=== PATIENT | male | born 1975 | race Caucasian/White ===

== ENCOUNTER 2020-09-13 17:06 | Emergency (ER) | payer MEDICARE, MEDICAID ==
[~2020-09-13] VITALS: Ht 165.1 cm; Wt 91.0 kg
[2020-09-13] MEDS ORDERED: INSLIS SUBCUT (17:17)
[2020-09-13] MEDS ORDERED: DEXTROSE 50% WATER 50ML SYRINGE IV ONE (17:30)
[2020-09-13 18:00] VITALS: BP 162/65
[2020-09-13 18:12] LABS: BASOPHILS % 2.8 % (0.0-2.0); EOSINOPHILS % 4.6 % (0.0-5.0); HEMATOCRIT. 31.8 % (42.0-52.0); HEMOGLOBIN. 10.6 g/dL (14.0-18.0); LYMPHOCYTES % 11.6 % (20.0-50.0); MEAN CORPUSCULAR HEMOGLOBIN 33.3 pg (28.0-32.0); MEAN CORPUSCULAR VOLUME 100.2 fL (80.0-94.0); MEAN PLATELET VOLUME 8.3 fl (7.4-10.4); MONOCYTES % 8.2 % (2.0-8.0); NEUTROPHILS % 72.8 % (40.0-76.0); PLATELET 312 x1000/uL (130-400); RED BLOOD CELL COUNT 3.17 mill/uL (4.7-6.1); RED CELL DISTRIBUTION WIDTH 15.9 % (11.6-14.6)
[2020-09-13 18:21] LABS: CHLORIDE 93 mEq/L (98-107)
== END 2020-09-13 20:40 | disposition home or self-care (01) ==
LOC: EDBD 17:54 → ER 17:54
DX: E11.649 Type 2 diabetes mellitus with hypoglycemia without coma (principal); I12.0 Hypertensive chronic kidney disease with stage 5 chronic kidney disease or end stage renal disease; E11.22 Type 2 diabetes mellitus with diabetic chronic kidney disease; N18.6 End stage renal disease; Z99.2 Dependence on renal dialysis
CPT/HCPCS: 36415; 71045; 80053; 82962; 85025; 93005; 99285

== ENCOUNTER 2021-01-18 09:06 | Emergency (ER) | payer MEDICARE, MEDICAID ==
[~2021-01-18] VITALS: Ht 167.6 cm; Wt 50.0 kg
[~2021-01-18 09:06] MED LIST: INSLIS SUBCUT
[2021-01-18] MEDS ORDERED: TETANUS, DIPHTHERIA, PERTUSSIS VAC/PF 0.5ML (>10YR OLD) IM ONE (09:45)
[2021-01-18] MEDS ORDERED: ACETAMINOPHEN 325MG TABLET PO ONE (09:45)
[2021-01-18] MEDS ORDERED: ACET-2708 MT (10:44)
[2021-01-18 11:36] VITALS: BP 122/78
== END 2021-01-18 11:39 | disposition home or self-care (01) ==
LOC: ER 09:06
DX: S42.001A Fracture of unspecified part of right clavicle, initial encounter for closed fracture (principal); S09.8XXA Other specified injuries of head, initial encounter; E11.22 Type 2 diabetes mellitus with diabetic chronic kidney disease; I12.0 Hypertensive chronic kidney disease with stage 5 chronic kidney disease or end stage renal disease; N18.6 End stage renal disease; Z99.2 Dependence on renal dialysis; W06.XXXA Fall from bed, initial encounter; Y93.89 Activity, other specified; Y92.013 Bedroom of single-family (private) house as the place of occurrence of the external cause
CPT/HCPCS: 71045; 73030; 90471; 90715; 99284; A4565

== ENCOUNTER 2022-04-06 14:56 | Inpatient (IN) | payer MEDICARE, MEDICAID ==
[~2022-04-06] VITALS: Ht 172.7 cm; Wt 63.2 kg
[~2022-04-06 14:56] MED LIST changes: +ACET-2708 MT
[2022-04-06 16:41] LABS: BASOPHILS % 0.9 % (0.0-2.0); HEMATOCRIT. 26.1 % (42.0-52.0); HEMOGLOBIN. 8.7 g/dL (14.0-18.0); LYMPHOCYTES % 7.1 % (20.0-50.0); MEAN CORPUSCULAR HEMOGLOBIN 32.3 pg (28.0-32.0); MONOCYTES % 9.6 % (2.0-8.0); NEUTROPHILS % 79.4 % (40.0-76.0); PLATELET 229 x1000/uL (130-400); RED BLOOD CELL COUNT 2.69 mill/uL (4.7-6.1); RED CELL DISTRIBUTION WIDTH 16.1 % (11.6-14.6)
[2022-04-06 16:45] LABS: CHLORIDE 99 mEq/L (98-107)
[2022-04-06 19:47] LABS: HEPATITIS B SURFACE ANTIGEN NEGATIVE
[2022-04-07] VITALS (10 sets, daily range): BP systolic 139–180; BP diastolic 63–87
[2022-04-07] MEDS ORDERED: GUAIFENESIN 200MG/10ML SUGAR FREE UDC PO PRN (01:00)
[2022-04-07] MEDS ORDERED: DOCUSATE SODIUM 100MG CAPSULE PO PRN (01:00)
[2022-04-07] MEDS ORDERED: CLONIDINE 0.1MG TABLET PO PRN (01:00)
[2022-04-07] MEDS: EPOETIN ALFA-EPBX 4,000 UNIT/ML VIAL SUBCUT SCH (03:56)
[2022-04-07 06:05] LABS: PHOSPHORUS 4.7 mg/dL (2.5-4.9)
[2022-04-07] MEDS ORDERED: INSULIN LISPRO 100 UNITS/ML SUBCUT NR ×2 (06:15→06:25)
[2022-04-07 06:19] LABS: INR 1.1; PARTIAL THROMBOPLASTIN TIME 30.8 sec (23.4-31.0); PROTHROMBIN TIME 11.7 sec (9.6-11.0)
[2022-04-07] MEDS: FAMOTIDINE 20MG TABLET PO SCH (09:32)
[2022-04-07] MEDS ORDERED: DEXTROSE 50% WATER 50ML SYRINGE IV PRN (15:00)
[2022-04-07] MEDS ORDERED: HYDRALAZINE HCL 50MG TABLET PO SCH (15:00)
[2022-04-07] MEDS: INSULIN LISPRO 100 UNITS/ML SUBCUT SCH ×3 (15:07→20:01)
[2022-04-07] MEDS ORDERED: amlodipine PO (17:06)
[2022-04-07] MEDS: BLOOD SUGAR DIAGNOSTIC STRIP TEST SCH ×2 (17:22→20:01)
[2022-04-07] MEDS: HYDRALAZINE HCL 50MG TABLET PO SCH (18:08)
[2022-04-07] MEDS ORDERED: PNEUMOCOCCAL 23-VAL P-SAC VAC 0.5 ML IM ONE (21:00)
[2022-04-08] VITALS (19 sets, daily range): BP systolic 110–179; BP diastolic 49–86
[2022-04-08] MEDS ORDERED: AMLODIPINE 10MG TABLET PO NR (04:30)
[2022-04-08] MEDS ORDERED: AMLODIPINE 5MG TABLET PO NR ×3 (04:35→18:45)
[2022-04-08] MEDS: BLOOD SUGAR DIAGNOSTIC STRIP TEST SCH ×4 (06:11→21:14)
[2022-04-08] MEDS: INSULIN LISPRO 100 UNITS/ML SUBCUT SCH ×4 (06:11→21:15)
[2022-04-08] MEDS: FAMOTIDINE 20MG TABLET PO SCH (08:29)
[2022-04-08] MEDS ORDERED: INSULIN LISPRO 100 UNITS/ML SUBCUT NR (08:30)
[2022-04-08] MEDS: HYDRALAZINE HCL 50MG TABLET PO SCH ×3 (08:32→21:14)
[2022-04-08] MEDS: EPOETIN ALFA-EPBX 4,000 UNIT/ML VIAL SUBCUT SCH (21:14)
[2022-04-08] MEDS ORDERED: INSULIN GLARGINE 100 UNITS/ML SUBCUT SCH ×2 (22:00)
[2022-04-09] VITALS: BP 151/64
[2022-04-09 04:00] VITALS: BP 132/69
[2022-04-09] MEDS: HYDRALAZINE HCL 50MG TABLET PO SCH (05:00)
[2022-04-09] MEDS: BLOOD SUGAR DIAGNOSTIC STRIP TEST SCH (06:44)
[2022-04-09 07:56] VITALS: BP 155/67
[2022-04-09 08:02] VITALS: BP 155/67
[2022-04-09] MEDS: INSULIN LISPRO 100 UNITS/ML SUBCUT SCH (08:09)
== END 2022-04-09 10:00 | disposition home or self-care (01) | DRG 813 ==
LOC: ER 14:56 → EDBEDREQ 21:20 → MICUSO 23:27 → 7WST 04-07 14:38
PROVIDERS: ADMIT Hospitalist; ATTEND Hospitalist
PROC: 5A1D70Z Performance of Urinary Filtration, Intermittent, Less than 6 Hours Per Day (ICD-10-PCS; principal; 2022-04-07)
PROC: 5A1D70Z Performance of Urinary Filtration, Intermittent, Less than 6 Hours Per Day (ICD-10-PCS; 2022-04-08)
DX: D69.1 Qualitative platelet defects (principal); N18.6 End stage renal disease; E46 Unspecified protein-calorie malnutrition; I50.32 Chronic diastolic (congestive) heart failure; I13.2 Hypertensive heart and chronic kidney disease with heart failure and with stage 5 chronic kidney disease, or end stage renal disease; D63.8 Anemia in other chronic diseases classified elsewhere; E11.22 Type 2 diabetes mellitus with diabetic chronic kidney disease; E11.51 Type 2 diabetes mellitus with diabetic peripheral angiopathy without gangrene; Z99.2 Dependence on renal dialysis; Z79.899 Other long term (current) drug therapy; Z79.4 Long term (current) use of insulin; Z91.15 Patient's noncompliance with renal dialysis; E11.40 Type 2 diabetes mellitus with diabetic neuropathy, unspecified; E11.65 Type 2 diabetes mellitus with hyperglycemia
CPT/HCPCS: 36415; 71045; 80053; 82962; 83036; 83735; 84100; 84484; 85025; 85576; 86705; 86709; 86803; 87340; 90732; 90935; 93005; 99285; J0885; J1815

== ENCOUNTER 2022-04-09 13:15 | Emergency (ER) | payer MEDICARE, MEDICAID ==
[~2022-04-09] VITALS: Ht 170.2 cm; Wt 80.0 kg
[~2022-04-09 13:15] MED LIST changes: +amlodipine PO
[2022-04-09 13:19] VITALS: BP 178/76
== END 2022-04-09 18:14 | disposition home or self-care (01) ==
LOC: ER 13:20
DX: E11.649 Type 2 diabetes mellitus with hypoglycemia without coma (principal); E11.22 Type 2 diabetes mellitus with diabetic chronic kidney disease; I12.9 Hypertensive chronic kidney disease with stage 1 through stage 4 chronic kidney disease, or unspecified chronic kidney disease; N18.6 End stage renal disease; N18.9 Chronic kidney disease, unspecified; Z79.4 Long term (current) use of insulin; Z99.2 Dependence on renal dialysis; Z89.9 Acquired absence of limb, unspecified
CPT/HCPCS: 82962; 99283